=== PATIENT | female | born 1955 | race Caucasian/White ===

== ENCOUNTER 2016-06-24 14:28 | Outpatient (CLI) | payer OTHER ==
[2016-06-24 14:39] LABS: BASOPHILS % 0.6 (0.0-1.5); EOSINOPHILS % 1.1 % (0.0-6.8); MEAN CORPUSCULAR HEMOGLOBIN 29.4 pg (28.0-34.0); MEAN CORPUSCULAR VOLUME 86.5 fl (80.0-100.0); MONOCYTES % 3.1 % (0.0-11.0); NEUTROPHILS # 6.6 # k/uL (1.4-7.7)
[2016-06-24 15:17] LABS: eGFR (African) > 60; eGFR (Non-African) 41
--- NOTE | 2016-06-24 18:49 | Diagnostic Imaging Report ---
[facility] [address] [facility].[address] [address] ~ ~ ~ ~ Report Submission Date: June 24, 2016 3:56:16 PM CDT Patient ~ Study Name: FELIPA TAO ~ Date: June 24, 2016 2:39:06 PM CDT ~ Modality Type: CR Gender: F ~ Description: CHEST : 57 ~ Institution: [facility] Physician NILSON SALDAÑA ~ ~ ~ Chest -two views CLINICAL HISTORY: ~ Chest fullness for about 3 months. FINDINGS: ~ Examination of the chest in PA and lateral views demonstrates the lungs to be clear. ~Cardiovascular and mediastinal silhouettes are within normal limits. ~ Bony thorax is intact. ~There are mild degenerative changes in the shoulders. IMPRESSION: ~ No active disease. ~ Electronically signed on June 24, 2016 3:56:16 PM CDT by: Santosh RILEY
== END 2016-06-24 14:30 ==
LOC: RAD 14:28
PROVIDERS: ATTEND Family Medicine
DX: R07.89 Other chest pain (principal)
CPT/HCPCS: 36415; 71020; 80048; 85025

== ENCOUNTER 2016-07-13 13:28 | Outpatient (CLI) | payer OTHER ==
[2016-07-13 14:10] LABS: eGFR (African) > 60; eGFR (Non-African) > 60
== END 2016-07-13 13:30 ==
LOC: LAB 13:28
PROVIDERS: ATTEND Family Medicine
DX: R79.89 Other specified abnormal findings of blood chemistry (principal)
CPT/HCPCS: 36415; 80048

== ENCOUNTER 2016-07-28 12:01 | Outpatient (CLI) | payer OTHER | END 2016-07-28 12:18 | disposition home or self-care (01) | LOC: CARD 12:01 | PROVIDERS: ATTEND Internal Medicine Cardiovascular Disease | DX: R01.1 Cardiac murmur, unspecified (principal) ==

== ENCOUNTER 2016-11-27 08:12 | Outpatient (CLI) | payer OTHER ==
--- NOTE | 2016-11-27 09:46 | Diagnostic Imaging Report ---
NILSON SALDAÑA [facility] [address] [facility] [address] [address] Report Submission Date: Nov 27, 2016 8:51:42 AM CDT Patient Study Name: FELIPA TAO Date: Nov 27, 2016 8:20:16 AM CDT Modality Type: CR Gender: F Description: LOWER EXTREMITY : 57 Institution: [facility] [place] [facility] Physician: NILSON SALDAÑA RIGHT KNEE, 3 views History: POSTERIOR KNEE SWELLING AND PAIN FOR 4 MONTHS Findings: The osseous structures are intact without acute fracture. There is mild air in the medial tibiofemoral joint space with associate minimal marginal spurring. No joint effusion. There is no soft tissue swelling. Impression: 1. No acute osseous abnormality. 2. Minimal osteoarthritis. Electronically signed on Nov 27, 2016 8:51:42 AM CDT by: Josef RILEY
--- NOTE | 2016-11-27 09:47 | Diagnostic Imaging Report ---
NILSON SALDAÑA [facility] [address] [facility] [address] [place], [place]. [address] Report Submission Date: Nov 27, 2016 9:05:29 AM CDT Patient Study Name: FELIPA TAO Date: Nov 27, 2016 8:28:59 AM CDT Modality Type: US Gender: F Description: UNILAT LTD STDY EXT VEINS : 57 Institution: [facility] Physician: NILSON SALDAÑA Right lower extremity Doppler venous ultrasound History: Right posterior knee pain Grayscale and color Doppler images right lower extremity are submitted No similar comparison studies Flow is demonstrated in right external iliac vein, right common femoral vein, profunda femoris vein, femoral vein in its proximal, mid and distal portions, these veins are compressible. The right great saphenous vein is compressible The right popliteal vein and posterior tibial vein are compressible Small amount of fluid collection is seen in the right medial popliteal region, measuring 3.3 centimeters in length Impression: 1. No evidence of dvt in the demonstrated venous segments of the right lower extremity 2. Small amount of fluid is seen in the medial popliteal region, ? secondary to ruptured Sierra's cyst. Electronically signed on Nov 27, 2016 9:05:29 AM CDT by: Arleen RILEY
== END 2016-11-27 08:13 ==
LOC: RAD 08:12
PROVIDERS: ATTEND Family Medicine
DX: M25.561 Pain in right knee (principal); M79.661 Pain in right lower leg
CPT/HCPCS: 73560; 93971